=== PATIENT | male | born 1985 | race Two or more races ===

== ENCOUNTER 2017-07-08 10:58 | Emergency (ER) | payer OTHER ==
[~2017-07-08] VITALS: Ht 188 cm; Wt 90.7 kg
[2017-07-08 11:04] VITALS: BP 132/75
== END 2017-07-08 11:19 | disposition home or self-care (01) ==
LOC: ER 10:59
DX: J06.9 Acute upper respiratory infection, unspecified (principal)
CPT/HCPCS: 99283; A4606; Z7610

== ENCOUNTER 2018-09-16 09:51 | Emergency (ER) | payer OTHER ==
[~2018-09-16] VITALS: Ht 188 cm; Wt 86.2 kg
[2018-09-16 09:51] VITALS: BP 125/75
[2018-09-16] MEDS ORDERED: ACETAMINOPHEN ES 500 MG TABLET ONE (10:17)
[2018-09-16] MEDS ORDERED: ACETAMINOPHEN ES 500 MG TABLET PO ONE (10:30)
--- NOTE | 2018-09-16 10:48 | NUR ---
Patient discharged to home in stable condition. Written and verbal after care instructions given. Patient verbalizes understanding of instruction.
== END 2018-09-16 10:48 | disposition home or self-care (01) ==
LOC: ER 09:53
DX: J06.9 Acute upper respiratory infection, unspecified (principal); Z60.2 Problems related to living alone

== ENCOUNTER 2019-03-08 09:49 | Emergency (ER) | payer OTHER ==
[~2019-03-08] VITALS: Ht 188 cm; Wt 83.9 kg
[2019-03-08 10:03] VITALS: BP 129/65
--- NOTE | 2019-03-08 10:51 | NUR ---
Patient discharged to home in stable condition. Written and verbal after care instructions given. Patient verbalizes understanding of instruction.
== END 2019-03-08 10:51 | disposition home or self-care (01) ==
LOC: ER 09:49
DX: B34.9 Viral infection, unspecified (principal); Z60.2 Problems related to living alone

== ENCOUNTER 2019-07-11 10:33 | Emergency (ER) | payer OTHER ==
[~2019-07-11] VITALS: Ht 188 cm; Wt 83.9 kg
[2019-07-11 11:15] VITALS: BP 118/72
== END 2019-07-11 11:16 | disposition home or self-care (01) ==
LOC: ER 10:34
DX: J11.1 Influenza due to unidentified influenza virus with other respiratory manifestations (principal); Z60.2 Problems related to living alone

== ENCOUNTER 2019-07-18 16:20 | Emergency (ER) | payer OTHER ==
[~2019-07-18] VITALS: Ht 188 cm; Wt 86.2 kg
[2019-07-18 16:33] VITALS: BP 125/69
--- NOTE | 2019-07-18 17:03 | NUR ---
at bedside for eval.
[2019-07-18] MEDS ORDERED: AMOX/CLAVULANATE 875 MG TABLET ONE (17:10)
[2019-07-18] MEDS ORDERED: AMOX/CLAVULANATE 875 MG TABLET PO ONE (17:30)
--- NOTE | 2019-07-18 17:37 | NUR ---
Patient discharged to home in stable condition. Written and verbal after care instructions given. Patient verbalizes understanding of instruction.
== END 2019-07-18 17:38 | disposition home or self-care (01) ==
LOC: ER 16:21
DX: J32.0 Chronic maxillary sinusitis (principal); Z60.2 Problems related to living alone

== ENCOUNTER 2022-02-26 15:06 | Emergency (ER) | payer OTHER ==
[~2022-02-26] VITALS: Ht 188 cm; Wt 86.2 kg
--- NOTE | 2022-02-26 15:15 | NUR ---
BIBS W/ C/O COUGH X5DAYS; PER PT, HE TESTED FOR COVID LAST SATURDAY AND WAS NEGATIVE. TO ER BED 11.
--- NOTE | 2022-02-26 15:44 | NUR ---
COVID RAPID AND PCR SWABS OBTAINED AND SENT TO LAB
--- NOTE | 2022-02-26 16:26 | NUR ---
COVID (=) Addendum: 02/26/22 at 1626 by INDY COVID (+) INDIGO CRAVEN
[2022-02-26] MEDS ORDERED: ACET-2605 PO (16:27)
[2022-02-26 16:46] VITALS: BP 136/78
--- NOTE | 2022-02-26 16:46 | NUR ---
Patient discharged to home in stable condition. Written and verbal after care instructions given. Patient verbalizes understanding of instruction.
--- NOTE | 2022-02-27 11:51 | NUR ---
PT IS COVID POSITIVE
== END 2022-02-26 16:46 | disposition home or self-care (01) ==
LOC: ER 15:08
DX: U07.1 COVID-19 (principal)
CPT/HCPCS: 99284; 71045; 87426; U0003; C9803

== ENCOUNTER 2024-08-21 17:11 | Emergency (ER) | payer OTHER ==
[~2024-08-21] VITALS: Ht 188 cm; Wt 88.0 kg
[~2024-08-21 17:11] MED LIST: ACET-2605 PO
[2024-08-21 19:15] VITALS: BP 126/88; TEMP 99
[2024-08-21 19:20] VITALS: O2SAT 99
[2024-08-21] MEDS ORDERED: POLY119P PO (19:30)
[2024-08-21] MEDS ORDERED: DOCU-141 PO (19:30)
[2024-08-21] MEDS ORDERED: SENN8.6T19 PO (19:30)
== END 2024-08-21 19:39 | disposition home or self-care (01) ==
LOC: ER 17:23
DX: K59.00 Constipation, unspecified (principal); R10.30 Lower abdominal pain, unspecified; Z60.2 Problems related to living alone